=== PATIENT | male | born 1960 | race Caucasian/White ===

== ENCOUNTER → 2019-06-24 | Outpatient (CLI) | payer BC ==
--- NOTE | 2019-06-25 09:41 | SLEEP ---
DATE OF STUDY: 06/24/2019 HOME SLEEP STUDY ATTENDING PHYSICIAN: Rell Olson DO The patient is 59 years old, who weighs 225 pounds with a BMI of 34. The patient's [place] score was 3. The patient underwent home sleep study performed by [facility]. Total recording time was 205 minutes. During the night study, the patient had 2 central apneas, no obstructive or mixed apneas and 2 hypopneas. The patient's apnea-hypopnea index with entire night was 1.2 per hour. Nocturnal oximetry study revealed mean oxygen saturation of 93% with the lowest of 80%. This appeared to be an artifact. No significant desaturation of less than 90% observed. Mean heart rate 66 beats per minute. IMPRESSION: 1. No clinically significant sleep disorder breathing. The patient's AHI for the entire night was 1.2 per hour. 2. No clinically significant nocturnal hypoxia. RECOMMENDATIONS: 1. The patient does not meet the criteria for CPAP initiation due to very low AHI. 2. If clinical suspicion for sleep apnea is still high, then consider doing in-lab polysomnogram. 3. Weight loss is advised. 4. Avoid [employer] depressants. 5. Caution regarding driving if the patient is sleepy or sleep deprived. SAY HERNÁNDEZ MD DR: DAHLIA/nts JOB#: [id number] / [id number] RELL Lee DO
== END | disposition home or self-care (01) ==
LOC: RT 08:07
PROVIDERS: ATTEND Internal Medicine Critical Care Medicine
DX: G47.33 Obstructive sleep apnea (adult) (pediatric) (principal)
CPT/HCPCS: G0399